=== PATIENT | male | born 1980 | race Two or more races ===

== ENCOUNTER 2018-02-04 12:25 | Inpatient (IN) | payer OTHER ==
[2018-02-04 14:03] VITALS: BMI 19.0
--- NOTE | 2018-02-04 19:09 | HP ---
Admission [facility] Chief Complaint: I'm here for detox and rehab cocaone, heroin, xanax. Allergies/Adverse Reactions: Allergies Allergy/AdvReac Type Severity Reaction Status Date / Time No Known Allergies Allergy Verified 02/04/18 17:57 History of Present Illness: 37 yom with a history of heroin use for 12 years via IV 2-3 bundles daily. Cocaine/crack daily q2-3 hours for 7 months. Xanax 6-2 mg tabs daily for approximately 2 years. Last detox at [facility] one year ago. Currently on Methadone Maintenance 120 mg PO daily at [facility] [phone]) Last Methadone 02/04; Last use of xanax 02/04 @ 4 am; Cocaine/ crack last useson 02/04 @ 4am. Alcohol/Beer intake 12 oz every 3-4 hours for about 10 years. Last drink 02/03 @ 9 pm. Denies history black outs, seizures. - Ebola screening Have you traveled outside of the country in the last 21 days: No Have you had contact with anyone from an Ebola affected area: No Have you been sick,other than usual withdrawal symptoms: No - Review of Systems Constitutional: Chills, Loss of Appetite, Night Sweats, Unintentional Wgt. Loss (Lost about 10 pounds in last 3 months.) EENT: reports: Dental Problems (Missing teeth, cracked teeth, multiple caries. Denies tooth discomfort.) Respiratory: reports: No Symptoms reported Cardiac: reports: No Symptoms Reported GI: reports: Constipated (No BM x 3 days. BM's brownish in color and usually hard.), Nausea, Poor Appetite : reports: Other (Difficulty initiaing urine flow. Denies burning, pain or blood with urination.) Musculoskeletal: reports: No Symptoms Reported, Joint Pain (Pain both knees ankles for many years. Sharp, ranges between 7-8, increases with standing or sitting. Relieved with legs extended and resting.) Integumentary: reports: Other (Has sores from injecting self.) Neuro: reports: Other (Hx stroke 7 years ago post injection of cocaine. had a (L ) sided paralysis which resolved.) Endocrine: reports: No Symptoms Reported Hematology: reports: Anemia Psychiatric: reports: Orientated x3, Depressed (Hx bipolar disorder. States hx depression. Denies current thoughts of harming self or others. Admitis to suicide attempt in 1996 after having a fight with a family member.) Other Systems: Reviewed and Negative Patient History - Patient Medical History Hx Anemia: Yes Hx Asthma: Yes (Denies recent exacerbation.) Hx Chronic Obstructive Pulmonary Disease (COPD): No Hx Cancer: No Hx Cardiac Disorders: Yes (Possible [place] secondary to IV heroin and Cocaine use 2011, Hosp. in [place] ? pt d) Hx Congestive Heart Failure: No Hx Hypertension: No Hx Hypercholesterolemia: No Hx Pacemaker: No HX Cerebrovascular Accident: Yes (ri side head and left side of body affected 7 years ago after IV cocaine ) Hx Seizures: No (Denies seizures.) Hx Dementia: No Hx Diabetes: No Hx Gastrointestinal Disorders: No Hx Liver Disease: Yes (Hep C, diagnosed 1995) Hx Genitourinary Disorders: Yes (Difficulty initiating urine flow. ) Hx Sexually Transmitted Disorders: No Hx Renal Disease (ESRD): No Hx Thyroid Disease: No Hx Human Immunodeficiency Virus (HIV): No (denies) Hx Hepatitis C: Yes Hx Depression: Yes (Does not remember meds treated with. ) Hx Suicide Attempt: Yes (hx in 1996 "cuting" his vein in arm in [place]. Denies current suicide ideation.) Hx Bipolar Disorder: Yes (Does not remember what medications he was taking.) Hx Schizophrenia: No - Patient Surgical History Past Surgical History: No Hx Neurologic Surgery: No Hx Cataract Extraction: No Hx Cardiac Surgery: No Hx Lung Surgery: No Hx Breast Surgery: No Hx Breast Biopsy: No Hx Abdominal Surgery: No Hx Appendectomy: No Hx Cholecystectomy: No Hx Genitourinary Surgery: No Hx Section: No Hx Orthopedic Surgery: No Hx Hysterectomy: No Anesthesia Reaction: No - PPD History Date: 05/10/13 - Smoking Cessation Smoking history: Current every day smoker Have you smoked in the past 12 months: Yes Aproximately how many cigarettes per day: 20 Hx Chewing Tobacco Use: No Initiated information on smoking cessation: Yes 'Breaking Loose' booklet given: 02/04/18 - Substance & Tx. History Hx Alcohol Use: Yes Hx Substance Use: Yes Substance Use Type: Alcohol, Heroin, Marijuana, Prescribed, Tranquilizers - Substances Abused Heroin Route: Injection Frequency: Daily Amount used: 10-20bags Age of first use: 14 Date of Last Use: 02/03/18 Crack Route: Smoking Frequency: Daily Amount used: $1000 Age of first use: 30 Date of Last Use: 02/03/18 Benzodiazepine (Klonopin) Route: Oral Frequency: Daily Amount used: 12-14mg Age of first use: 32 Date of Last Use: 02/03/18 Marijuana/Hashish Route: Smoking Frequency: Daily Amount used: 1-3 blunts Age of first use: 10 Date of Last Use: 02/02/18 Family Disease History - Family Disease History Family History: Denies Admission Physical Exam [facility] - Vital Signs Vital Signs: Vital Signs - 24 hr 02/04/18 13:58 Temperature 97.7 F Pulse Rate 71 Respiratory 20 Rate B/P: 108/68 - Physical General Appearance: Yes: Within Normal Limits, Appropriately Dressed, Mild Distress HEENTM: Yes: Hearing grossly Normal, Normal ENT Inspection, Normocephalic, Normal Voice, DOMENICA Respiratory: Yes: Within Normal Limits Neck: Yes: Supple, Trachea in good position, Other (Needle/track childress (L) and ( R) lateral neck) Breast: Yes: Breast Exam Deferred Cardiology: Yes: Regular Rhythm, Regular Rate Abdominal: Yes: Within Normal Limits Back: Yes: Within Normal Limits Musculoskeletal: Yes: Within Normal Limits, full range of Motion Extremities: Yes: Within Normal Limits Neurological: Yes: Within Normal Limits Integumentary: Yes: Track Childress (Track childress neck, arms and hands.) Lymphatic: Yes: Within Normal Limits - Diagnostic (1) Methadone maintenance therapy patient Current Visit: Yes Status: Acute (2) History of CVA (cerebrovascular accident) without residual deficits Current Visit: Yes Status: Acute (3) Knee joint pain Current Visit: Yes Status: Acute (4) Ankle joint pain Current Visit: Yes Status: Acute (5) Cocaine dependence Current Visit: No Status: Active (6) Sedative dependence Current Visit: No Status: Active (7) Nicotine dependence Current Visit: Yes Status: Acute S Breath Alcohol Content Breath Alcohol Content: 0 Urine Drug Screen - Results Drug Screen Negative: No Urine Drug Screen Results: THC-Marijuana, RONAN-Cocaine, OPI-Opiates, MTD- Methadone Inpatient Rehab Admission - Initial Determination Are CD services needed?: Yes Free of communicable disease: Yes Not in need of hospitalization: Yes - Rehab Admission Criteria Previous failed treatment: Yes Poor recovery environment: Yes Comorbidities: Yes Lacks judgement: Yes Patient is meeting Inpatient Rehab admission criteria:: Yes
[2018-02-04] MEDS ORDERED: LOPERAMIDE HCL 2 MG CAPSULE PO PRN (20:02)
[2018-02-04] MEDS ORDERED: guaiFENesin/D-METHORPHAN HB 10 ML UNIT-DOSE CUPS PO PRN (20:02)
[2018-02-04] MEDS ORDERED: P-EPHED 60MG/TRIPROLIDI 2.5MG TABLET PO PRN (20:02)
[2018-02-04] MEDS ORDERED: MAGNESIUM CITRATE 300 ML BOTTLE PO PRN (20:02)
[2018-02-04] MEDS ORDERED: ALBUTEROL SO4 18 GM HFA INHALER IH PRN (20:03)
[2018-02-04] MEDS: THIAMINE HCL 100 MG TABLET (FP) PO SCH (23:11)
[2018-02-05 06:14] LABS: URINE APPEARANCE CLOUDY; URINE BILIRUBIN NEGATIVE (<2.0 mg/dL); URINE COLOR AMBER; URINE GLUCOSE (UA) NEGATIVE (NEGATIVE); URINE KETONE NEGATIVE (NEGATIVE); URINE LEUK ESTERASE NEGATIVE (NEGATIVE); URINE NITRITE NEGATIVE (NEGATIVE); URINE PROTEIN NEGATIVE (NEGATIVE)
--- NOTE | 2018-02-05 06:55 | HP ---
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 Patient is on methadone 120 mg/day. Smokes cigarettes 1ppd Psychiatric History: Reports being diagnosed with Bipolar and depression 7-8 years ago. Denies history of previous psychiatric hospitalizations or suicidal attempt. However, reports that he has been receiving psychiatric outpatient treatment at [facility] and he is prescribed Risperdal, Lexapro, Ambien 20 mg po HS and Klonopin 2 mg po BID. Reports non-adherence to OPD care and medications. Told publicity writer that he continues to take Klonopin and Ambien since he buys them from the street. However he does not comply with Risperdal and Lexapro which he has plenty at home. Reports history of suicidal attempt by cutting his left forearm. At present, reports feeling depressed, anxious and sleeping poorly. Physical/Sexual Abuse/Trauma History: Denies history of emotional, physical or sexual abuse as well as DV relationship. No service Additional Comment: Reports history of [place] in [place] 1993 Vital Signs: Vital Signs - 24 hr 02/04/18 02/05/18 02/05/18 13:58 00:30 03:30 Temperature 97.7 F Pulse Rate 71 Respiratory 20 18 18 Rate Allergies/Adverse Reactions: Allergies Allergy/AdvReac Type Severity Reaction Status Date / Time No Known Allergies Allergy Verified 02/04/18 17:57 Date of last physical exam: 02/04/18 - Substance Abuse/Tx History Hx Alcohol Use: No Hx Substance Use: Yes Substance Use Type: Cocaine (Started smoking crack cocaine at age 30, consumes $ 1000 worth daily. Last smoked on 02/03/18), Heroin (Started using heroin at age 14, consumes 10-20 bags daily. Last used on 02/03/18), Marijuana (Started smoking marijuana at age 10, consumes 1-3 blunts daily. Last smoked on 02/02/18) , Tranquilizers (Started using klonopin at age 32, consumes 12-14 mg daily. Last used on 02/03/18) Hx Substance Use Treatment: Yes (One previous inpt detox @ [facility] in April 2013) Mental Status Exam - Mental Status Exam Alert and Oriented to: Time, Place, Person Cognitive Function: Fair Patient Appearance: Well Groomed Mood: Depressed, Anxious Affect: Appropriate Patient Behavior: Cooperative Speech Pattern: Clear Voice Loudness: Normal Thought Process: Intact, Goal Oriented Thought Disorder: Not Present Hallucinations: Denies Suicidal Ideation: Denies Homicidal Ideation: Denies Insight/Judgement: Fair Sleep: Poorly Appetite: Poor Muscle strength/Tone: Normal Gait/Station: Normal Psychiatric Findings - Problem List ([place] 1, 2,3) (1) Cocaine dependence Current Visit: No Status: Active (2) Sedative dependence Current Visit: No Status: Active (3) Cannabis dependence Current Visit: Yes Status: Acute (4) Opioid dependence on agonist therapy Current Visit: Yes Status: Chronic (5) Nicotine dependence Current Visit: Yes Status: Chronic (6) Bipolar II disorder Current Visit: Yes Status: Chronic (7) MDD (major depressive disorder) Current Visit: Yes Status: Ruled-out (8) Substance induced mood disorder Current Visit: Yes Status: Acute (9) Substance-induced sleep disorder Current Visit: Yes Status: Acute (10) Asthma Current Visit: Yes Status: Chronic - Initial Treatment Plan Initial Treatment Plan: Schedule Manager called [facility]([phone]) regarding patient's medications to . According to agency staff, patient last attended in Oct 2017 and was then on Celexa 20 mg po daily, Klonopin 2 mg po BID and Ambien. He was not on Risperdal. That staff told publicity writer that she will ask someone with acces to more information about diagnosis etc to contact me. In the mean time, patient will be restarted on Celexa 20 mg po daily.
[2018-02-05] MEDS: METHADONE HCL 40 MG DISPERSABLE TABLET PO SCH (08:20)
--- NOTE | 2018-02-05 09:29 | EKG ---
Test Reason : Blood Pressure : / mmHG Vent. Rate : 058 BPM Atrial Rate : 058 BPM P-R Int : 154 ms QRS Dur : 072 ms QT Int : 464 ms P-R-T Axes : 043 000 034 degrees QTc Int : 455 ms SINUS BRADYCARDIA OTHERWISE NORMAL ECG NO PREVIOUS ECGS AVAILABLE Confirmed by ZARA BURKETT, JORDAN ([id number]) on 02/05/2018 9:29:15 AM Referred By: Confirmed By:JORDAN ZUÑIGA MD
[2018-02-05 09:49] LABS: HEMATOCRIT 38.9 % (35.4-49); HEMOGLOBIN 13.1 GM/dL (11.7-16.9); MCH 28.5 pg (25.7-33.7); MCHC 33.6 g/dl (32.0-35.9); MEAN CELL VOLUME 84.9 fl (80-96); MEAN PLT VOLUME 8.7 fl (7.5-11.1); PLATELET COUNT 234 K/MM3 (134-434); RBC 4.58 M/mm3 (4.00-5.60); RDW 14.7 % (11.9-15.9); WHITE BLOOD COUNT 5.7 K/mm3 (4.0-10.0)
[2018-02-05 10:03] LABS: CHLORIDE 110 mmol/L (98-107); POTASSIUM 3.8 mmol/L (3.5-5.1); SODIUM 142 mmol/L (136-145)
[2018-02-05 10:11] LABS: ALBUMIN 3.1 g/dl (3.4-5.0); ALK PHOS 96 U/L (45-117); ANION GAP 6 (8-16); BILIRUBIN,TOTAL 0.2 mg/dL (0.2-1.0); BLOOD UREA NITROGEN 10 mg/dL (7-18); CALCIUM 8.3 mg/dL (8.5-10.1); CO2 26 mmol/L (21-32); CREATININE 0.7 mg/dL (0.7-1.3); GLUCOSE,RANDOM 120 mg/dL (74-106); SGOT/AST 14 U/L (15-37); SGPT/ALT 14 U/L (12-78); TOT PROT 6.2 g/dl (6.4-8.2)
[2018-02-05] MEDS: PRENATAL VITAMINS W/ FOLIC ACID TABLET (FP) PO SCH (10:50)
[2018-02-05] MEDS: NICOTINE POLACRILEX 2 MG GUM BUC PRN ×2 (19:20→21:21)
[2018-02-05] MEDS: hydrOXYzine PAMOATE 50 MG CAPSULE (FP) PO PRN (21:21)
[2018-02-05] MEDS: MELATONIN 5 MG TABLETS PO PRN (21:21)
[2018-02-05] MEDS: THIAMINE HCL 100 MG TABLET (FP) PO SCH (21:21)
[2018-02-06] MEDS: METHADONE HCL 40 MG DISPERSABLE TABLET PO SCH (06:21)
[2018-02-06] MEDS: PRENATAL VITAMINS W/ FOLIC ACID TABLET (FP) PO SCH (10:24)
[2018-02-06] MEDS: NICOTINE POLACRILEX 2 MG GUM BUC PRN ×2 (18:04→21:37)
[2018-02-06] MEDS: THIAMINE HCL 100 MG TABLET (FP) PO SCH (21:37)
[2018-02-07] MEDS: METHADONE HCL 40 MG DISPERSABLE TABLET PO SCH (06:28)
[2018-02-07] MEDS: NICOTINE POLACRILEX 2 MG GUM BUC PRN ×3 (06:30→21:23)
[2018-02-07] MEDS: CITALOPRAM HYDROBROMIDE 20 MG TABLET (FP) PO SCH (10:02)
[2018-02-07] MEDS: PRENATAL VITAMINS W/ FOLIC ACID TABLET (FP) PO SCH (10:02)
[2018-02-07] MEDS: THIAMINE HCL 100 MG TABLET (FP) PO SCH (21:22)
[2018-02-08] MEDS: METHADONE HCL 40 MG DISPERSABLE TABLET PO SCH (06:08)
[2018-02-08] MEDS: ACETAMINOPHEN 325 MG TABLET (FP) PO PRN ×2 (06:09→18:14)
[2018-02-08] MEDS: NICOTINE POLACRILEX 2 MG GUM BUC PRN (08:22)
[2018-02-08] MEDS: PRENATAL VITAMINS W/ FOLIC ACID TABLET (FP) PO SCH (09:29)
[2018-02-08] MEDS: CITALOPRAM HYDROBROMIDE 20 MG TABLET (FP) PO SCH (09:29)
[2018-02-08] MEDS: NICOTINE 21 MG/24 HOURS TOPICAL PATCH TD SCH (12:15)
[2018-02-08] MEDS: NICOTINE POLACRILEX 4 MG GUM BUC PRN ×3 (12:15→21:29)
[2018-02-08] MEDS: CYCLOBENZAPRINE HCL 10 MG TABLET (FP) PO PRN (21:28)
[2018-02-08] MEDS: THIAMINE HCL 100 MG TABLET (FP) PO SCH (21:28)
[2018-02-09] MEDS: METHADONE HCL 40 MG DISPERSABLE TABLET PO SCH (06:20)
[2018-02-09] MEDS: ACETAMINOPHEN 325 MG TABLET (FP) PO PRN ×2 (06:20→19:04)
[2018-02-09] MEDS: PRENATAL VITAMINS W/ FOLIC ACID TABLET (FP) PO SCH (10:13)
[2018-02-09] MEDS: CITALOPRAM HYDROBROMIDE 20 MG TABLET (FP) PO SCH (10:13)
[2018-02-09] MEDS: NICOTINE 21 MG/24 HOURS TOPICAL PATCH TD SCH (10:13)
[2018-02-09] MEDS: CYCLOBENZAPRINE HCL 10 MG TABLET (FP) PO PRN ×2 (10:15→22:04)
[2018-02-09] MEDS: THIAMINE HCL 100 MG TABLET (FP) PO SCH (22:03)
[2018-02-09] MEDS: MELATONIN 5 MG TABLETS PO PRN (22:04)
[2018-02-09] MEDS: NICOTINE POLACRILEX 4 MG GUM BUC PRN (22:04)
[2018-02-09] MEDS: hydrOXYzine PAMOATE 50 MG CAPSULE (FP) PO PRN (22:04)
[2018-02-10] MEDS: METHADONE HCL 40 MG DISPERSABLE TABLET PO SCH (06:06)
[2018-02-10] MEDS: NICOTINE 21 MG/24 HOURS TOPICAL PATCH TD SCH (09:59)
[2018-02-10] MEDS: CITALOPRAM HYDROBROMIDE 20 MG TABLET (FP) PO SCH (09:59)
[2018-02-10] MEDS: PRENATAL VITAMINS W/ FOLIC ACID TABLET (FP) PO SCH (09:59)
[2018-02-10] MEDS: CYCLOBENZAPRINE HCL 10 MG TABLET (FP) PO PRN (10:00)
[2018-02-10] MEDS: NICOTINE POLACRILEX 4 MG GUM BUC PRN ×2 (10:01→21:10)
[2018-02-10] MEDS: THIAMINE HCL 100 MG TABLET (FP) PO SCH (21:09)
[2018-02-10] MEDS: MELATONIN 5 MG TABLETS PO PRN (21:09)
[2018-02-11] MEDS: METHADONE HCL 40 MG DISPERSABLE TABLET PO SCH (06:31)
[2018-02-11] MEDS: CYCLOBENZAPRINE HCL 10 MG TABLET (FP) PO PRN ×2 (06:32→21:06)
[2018-02-11] MEDS: ACETAMINOPHEN 325 MG TABLET (FP) PO PRN (06:32)
[2018-02-11] MEDS: MAG HYDROX/AL HYDROX/SIMETH 30 ML UNIT-DOSE CUP PO PRN (06:34)
[2018-02-11] MEDS: PRENATAL VITAMINS W/ FOLIC ACID TABLET (FP) PO SCH (09:34)
[2018-02-11] MEDS: CITALOPRAM HYDROBROMIDE 20 MG TABLET (FP) PO SCH (09:34)
[2018-02-11] MEDS: NICOTINE 21 MG/24 HOURS TOPICAL PATCH TD SCH (09:34)
[2018-02-11] MEDS: NICOTINE POLACRILEX 4 MG GUM BUC PRN ×2 (09:35→21:06)
[2018-02-11] MEDS: MELATONIN 5 MG TABLETS PO PRN (21:06)
[2018-02-11] MEDS: hydrOXYzine PAMOATE 50 MG CAPSULE (FP) PO PRN (21:06)
[2018-02-11] MEDS: THIAMINE HCL 100 MG TABLET (FP) PO SCH (21:06)
[2018-02-12] MEDS: METHADONE HCL 40 MG DISPERSABLE TABLET PO SCH (06:20)
[2018-02-12] MEDS: NICOTINE 21 MG/24 HOURS TOPICAL PATCH TD SCH (09:33)
[2018-02-12] MEDS: CITALOPRAM HYDROBROMIDE 20 MG TABLET (FP) PO SCH (09:33)
[2018-02-12] MEDS: PRENATAL VITAMINS W/ FOLIC ACID TABLET (FP) PO SCH (09:33)
[2018-02-12] MEDS: NICOTINE POLACRILEX 4 MG GUM BUC PRN ×2 (09:35→21:09)
[2018-02-12] MEDS: THIAMINE HCL 100 MG TABLET (FP) PO SCH (21:08)
[2018-02-12] MEDS: CYCLOBENZAPRINE HCL 10 MG TABLET (FP) PO PRN (21:08)
[2018-02-12] MEDS: MELATONIN 5 MG TABLETS PO PRN (21:08)
[2018-02-13] MEDS: METHADONE HCL 40 MG DISPERSABLE TABLET PO SCH (06:04)
[2018-02-13] MEDS: CITALOPRAM HYDROBROMIDE 20 MG TABLET (FP) PO SCH (09:30)
[2018-02-13] MEDS: NICOTINE 21 MG/24 HOURS TOPICAL PATCH TD SCH (09:30)
[2018-02-13] MEDS: PRENATAL VITAMINS W/ FOLIC ACID TABLET (FP) PO SCH (09:30)
[2018-02-13] MEDS: NICOTINE POLACRILEX 4 MG GUM BUC PRN ×2 (09:32→19:44)
[2018-02-13] MEDS: IBUPROFEN 400 MG TABLET (FP) PO PRN (19:42)
[2018-02-13] MEDS: THIAMINE HCL 100 MG TABLET (FP) PO SCH (21:03)
[2018-02-13] MEDS: MELATONIN 5 MG TABLETS PO PRN (21:03)
[2018-02-13] MEDS ORDERED: PT OWN MED DRAWER 7, Y5N ONE (22:02)
[2018-02-14] MEDS: METHADONE HCL 40 MG DISPERSABLE TABLET PO SCH (06:03)
[2018-02-14] MEDS: PRENATAL VITAMINS W/ FOLIC ACID TABLET (FP) PO SCH (09:36)
[2018-02-14] MEDS: CITALOPRAM HYDROBROMIDE 20 MG TABLET (FP) PO SCH (09:36)
[2018-02-14] MEDS: NICOTINE 21 MG/24 HOURS TOPICAL PATCH TD SCH (09:36)
[2018-02-14] MEDS: NICOTINE POLACRILEX 4 MG GUM BUC PRN ×3 (09:37→21:33)
[2018-02-14] MEDS: hydrOXYzine PAMOATE 50 MG CAPSULE (FP) PO PRN ×2 (10:51→21:32)
[2018-02-14] MEDS: THIAMINE HCL 100 MG TABLET (FP) PO SCH (21:32)
[2018-02-14] MEDS: MELATONIN 5 MG TABLETS PO PRN (21:32)
[2018-02-15] MEDS: METHADONE HCL 40 MG DISPERSABLE TABLET PO SCH (06:07)
[2018-02-15] MEDS: NICOTINE 21 MG/24 HOURS TOPICAL PATCH TD SCH (10:06)
[2018-02-15] MEDS: CITALOPRAM HYDROBROMIDE 20 MG TABLET (FP) PO SCH (10:06)
[2018-02-15] MEDS: PRENATAL VITAMINS W/ FOLIC ACID TABLET (FP) PO SCH (10:06)
[2018-02-15] MEDS: NICOTINE POLACRILEX 4 MG GUM BUC PRN ×2 (18:11→21:35)
[2018-02-15] MEDS: hydrOXYzine PAMOATE 50 MG CAPSULE (FP) PO PRN (18:11)
[2018-02-15] MEDS: THIAMINE HCL 100 MG TABLET (FP) PO SCH (21:35)
[2018-02-15] MEDS: MELATONIN 5 MG TABLETS PO PRN (21:35)
[2018-02-16] MEDS: METHADONE HCL 40 MG DISPERSABLE TABLET PO SCH (06:20)
[2018-02-16] MEDS: PRENATAL VITAMINS W/ FOLIC ACID TABLET (FP) PO SCH (10:04)
[2018-02-16] MEDS: CITALOPRAM HYDROBROMIDE 20 MG TABLET (FP) PO SCH (10:04)
[2018-02-16] MEDS: NICOTINE 21 MG/24 HOURS TOPICAL PATCH TD SCH (10:04)
[2018-02-16] MEDS: NICOTINE POLACRILEX 4 MG GUM BUC PRN ×3 (10:07→21:35)
[2018-02-16] MEDS: THIAMINE HCL 100 MG TABLET (FP) PO SCH (21:34)
[2018-02-16] MEDS: MELATONIN 5 MG TABLETS PO PRN (21:34)
[2018-02-16] MEDS: MAG HYDROX/AL HYDROX/SIMETH 30 ML UNIT-DOSE CUP PO PRN (21:35)
[2018-02-16] MEDS: ACETAMINOPHEN 325 MG TABLET (FP) PO PRN (23:47)
[2018-02-17] MEDS: METHADONE HCL 40 MG DISPERSABLE TABLET PO SCH (06:28)
[2018-02-17] MEDS: PRENATAL VITAMINS W/ FOLIC ACID TABLET (FP) PO SCH (10:01)
[2018-02-17] MEDS: CITALOPRAM HYDROBROMIDE 20 MG TABLET (FP) PO SCH (10:01)
[2018-02-17] MEDS: NICOTINE 21 MG/24 HOURS TOPICAL PATCH TD SCH (10:01)
[2018-02-17] MEDS: NICOTINE POLACRILEX 4 MG GUM BUC PRN ×2 (10:02→21:32)
[2018-02-17] MEDS: MAG HYDROX/AL HYDROX/SIMETH 30 ML UNIT-DOSE CUP PO PRN (19:17)
[2018-02-17] MEDS: THIAMINE HCL 100 MG TABLET (FP) PO SCH (21:30)
[2018-02-17] MEDS: MELATONIN 5 MG TABLETS PO PRN (21:30)
[2018-02-17] MEDS: IBUPROFEN 400 MG TABLET (FP) PO PRN (21:31)
[2018-02-18] MEDS: METHADONE HCL 40 MG DISPERSABLE TABLET PO SCH (05:51)
[2018-02-18] MEDS: NICOTINE 21 MG/24 HOURS TOPICAL PATCH TD SCH (09:59)
[2018-02-18] MEDS: PRENATAL VITAMINS W/ FOLIC ACID TABLET (FP) PO SCH (09:59)
[2018-02-18] MEDS: CITALOPRAM HYDROBROMIDE 20 MG TABLET (FP) PO SCH (10:00)
[2018-02-18] MEDS: MAGNESIUM HYDROX 2400MG/30ML ORAL SUSPENSION 30 ML CUP PO PRN (11:10)
[2018-02-18] MEDS: THIAMINE HCL 100 MG TABLET (FP) PO SCH (21:44)
[2018-02-18] MEDS: MELATONIN 5 MG TABLETS PO PRN (21:45)
[2018-02-18] MEDS: NICOTINE POLACRILEX 4 MG GUM BUC PRN (21:45)
[2018-02-19] MEDS: METHADONE HCL 40 MG DISPERSABLE TABLET PO SCH (06:43)
[2018-02-19] MEDS: MAGNESIUM HYDROX 2400MG/30ML ORAL SUSPENSION 30 ML CUP PO PRN (10:09)
[2018-02-19] MEDS: NICOTINE 21 MG/24 HOURS TOPICAL PATCH TD SCH (10:09)
[2018-02-19] MEDS: PRENATAL VITAMINS W/ FOLIC ACID TABLET (FP) PO SCH (10:09)
[2018-02-19] MEDS: CITALOPRAM HYDROBROMIDE 20 MG TABLET (FP) PO SCH (10:09)
[2018-02-19] MEDS: NICOTINE POLACRILEX 4 MG GUM BUC PRN ×2 (10:11→21:50)
[2018-02-19] MEDS: THIAMINE HCL 100 MG TABLET (FP) PO SCH (21:50)
[2018-02-19] MEDS: MELATONIN 5 MG TABLETS PO PRN (21:50)
[2018-02-20] MEDS: METHADONE HCL 40 MG DISPERSABLE TABLET PO SCH (06:43)
[2018-02-20] MEDS: PRENATAL VITAMINS W/ FOLIC ACID TABLET (FP) PO SCH (10:33)
[2018-02-20] MEDS: CITALOPRAM HYDROBROMIDE 20 MG TABLET (FP) PO SCH (10:33)
[2018-02-20] MEDS: NICOTINE 21 MG/24 HOURS TOPICAL PATCH TD SCH (10:33)
[2018-02-20] MEDS: NICOTINE POLACRILEX 4 MG GUM BUC PRN ×2 (10:35→21:53)
[2018-02-20] MEDS: MELATONIN 5 MG TABLETS PO PRN (21:52)
[2018-02-20] MEDS: THIAMINE HCL 100 MG TABLET (FP) PO SCH (21:52)
[2018-02-21] MEDS: METHADONE HCL 40 MG DISPERSABLE TABLET PO SCH (06:35)
[2018-02-21] MEDS: NICOTINE POLACRILEX 4 MG GUM BUC PRN ×2 (10:33→21:57)
[2018-02-21] MEDS: PRENATAL VITAMINS W/ FOLIC ACID TABLET (FP) PO SCH (10:33)
[2018-02-21] MEDS: CITALOPRAM HYDROBROMIDE 20 MG TABLET (FP) PO SCH (10:33)
[2018-02-21] MEDS: NICOTINE 21 MG/24 HOURS TOPICAL PATCH TD SCH (10:33)
[2018-02-21] MEDS: hydrOXYzine PAMOATE 50 MG CAPSULE (FP) PO PRN (21:56)
[2018-02-21] MEDS: MELATONIN 5 MG TABLETS PO PRN (21:56)
[2018-02-21] MEDS: MAG HYDROX/AL HYDROX/SIMETH 30 ML UNIT-DOSE CUP PO PRN (21:56)
[2018-02-21] MEDS: THIAMINE HCL 100 MG TABLET (FP) PO SCH (21:56)
[2018-02-22] MEDS: METHADONE HCL 40 MG DISPERSABLE TABLET PO SCH (06:28)
[2018-02-22] MEDS: CITALOPRAM HYDROBROMIDE 20 MG TABLET (FP) PO SCH (10:27)
[2018-02-22] MEDS: PRENATAL VITAMINS W/ FOLIC ACID TABLET (FP) PO SCH (10:27)
[2018-02-22] MEDS: NICOTINE 21 MG/24 HOURS TOPICAL PATCH TD SCH (10:27)
[2018-02-22] MEDS: NICOTINE POLACRILEX 4 MG GUM BUC PRN ×3 (10:28→22:08)
[2018-02-22] MEDS: THIAMINE HCL 100 MG TABLET (FP) PO SCH (22:07)
[2018-02-22] MEDS: MELATONIN 5 MG TABLETS PO PRN (22:07)
[2018-02-23] MEDS: METHADONE HCL 40 MG DISPERSABLE TABLET PO SCH (06:36)
[2018-02-23] MEDS: NICOTINE 21 MG/24 HOURS TOPICAL PATCH TD SCH (10:36)
[2018-02-23] MEDS: CITALOPRAM HYDROBROMIDE 20 MG TABLET (FP) PO SCH (10:37)
[2018-02-23] MEDS: PRENATAL VITAMINS W/ FOLIC ACID TABLET (FP) PO SCH (10:37)
[2018-02-23] MEDS: NICOTINE POLACRILEX 4 MG GUM BUC PRN ×3 (10:38→22:00)
[2018-02-23] MEDS: THIAMINE HCL 100 MG TABLET (FP) PO SCH (21:58)
[2018-02-23] MEDS: MELATONIN 5 MG TABLETS PO PRN (22:00)
[2018-02-24] MEDS: METHADONE HCL 40 MG DISPERSABLE TABLET PO SCH (06:27)
[2018-02-24] MEDS: CITALOPRAM HYDROBROMIDE 20 MG TABLET (FP) PO SCH (10:11)
[2018-02-24] MEDS: PRENATAL VITAMINS W/ FOLIC ACID TABLET (FP) PO SCH (10:11)
[2018-02-24] MEDS: NICOTINE 21 MG/24 HOURS TOPICAL PATCH TD SCH (10:11)
[2018-02-24] MEDS: MAGNESIUM HYDROX 2400MG/30ML ORAL SUSPENSION 30 ML CUP PO PRN (10:13)
[2018-02-24] MEDS: NICOTINE POLACRILEX 4 MG GUM BUC PRN ×2 (10:14→21:16)
[2018-02-24] MEDS: THIAMINE HCL 100 MG TABLET (FP) PO SCH (21:16)
[2018-02-24] MEDS: MELATONIN 5 MG TABLETS PO PRN (21:16)
[2018-02-24] MEDS: hydrOXYzine PAMOATE 50 MG CAPSULE (FP) PO PRN (21:16)
[2018-02-25] MEDS: METHADONE HCL 40 MG DISPERSABLE TABLET PO SCH (06:17)
[2018-02-25] MEDS: CITALOPRAM HYDROBROMIDE 20 MG TABLET (FP) PO SCH (10:14)
[2018-02-25] MEDS: NICOTINE 21 MG/24 HOURS TOPICAL PATCH TD SCH (10:14)
[2018-02-25] MEDS: PRENATAL VITAMINS W/ FOLIC ACID TABLET (FP) PO SCH (10:14)
[2018-02-25] MEDS: NICOTINE POLACRILEX 4 MG GUM BUC PRN ×2 (10:15→21:50)
[2018-02-25] MEDS: MELATONIN 5 MG TABLETS PO PRN (21:50)
[2018-02-25] MEDS: THIAMINE HCL 100 MG TABLET (FP) PO SCH (21:50)
[2018-02-26] MEDS: METHADONE HCL 40 MG DISPERSABLE TABLET PO SCH (06:37)
--- NOTE | 2018-02-26 09:27 | PN ---
Psychiatric Progress Note Vital Signs: Vital Signs Period Temp Pulse Resp BP Sys/Romero Pulse Ox Last 24 Hr 97.8 F 68 18-18 103/76 Date of Session: 02/26/18 Chief Complaint:: Discharge Note HPI: Patient Cocaine, Sedative and Cannabis Dependence comorbid with Opioid Dependence on Agonist Therapy, Nicotine Dependence, Bipolar II Disorder, Substance-Induced Mood Disorder and Substance-Induced Sleep Disorder ROS: Asthma Current Medications: Active Medications Generic Name Dose Route Start Last Admin Trade Name Freq PRN Reason Stop Dose Admin Acetaminophen 650 mg 02/04/18 20:02 02/16/18 23:47 Tylenol - PO 650 mg Q4H PRN Administration FEVER Al Hydroxide/Mg Hydroxide 30 ml 02/04/18 20:02 02/21/18 21:56 Mylanta Oral Suspension - PO 30 ml Q6H PRN Administration DYSPEPSIA Albuterol Sulfate 2 puff 02/04/18 20:03 Ventolin Hfa Inhaler - IH Q4H PRN ASTHMA Citalopram Hydrobromide 20 mg 02/07/18 10:00 02/25/18 10:14 Celexa - PO 20 mg DAILY THEODORA Administration Eucalyptus/Menthol/Phenol/Sorbitol 1 each 02/04/18 20:02 Cepastat Lozenge - MM Q4H PRN SORE THROAT Guaifenesin 10 ml 02/04/18 20:02 Robitussin Dm - PO Q6H PRN COUGH Hydroxyzine Pamoate 50 mg 02/04/18 20:06 02/24/18 21:16 Vistaril - PO 50 mg Q6H PRN Administration FOR ITCHING Ibuprofen 400 mg 02/04/18 20:02 02/17/18 21:31 Motrin - PO 400 mg Q6H PRN Administration Pain level 4-6 Loperamide HCl 4 mg 02/04/18 20:02 Imodium - PO Q6H PRN DIARRHEA Magnesium Citrate 300 ml 02/04/18 20:02 02/20/18 10:33 Citroma - PO 300 ml Q48H PRN Administration CONSTIPATION Magnesium Hydroxide 30 ml 02/04/18 20:02 02/24/18 10:13 Milk Of Magnesia - PO 30 ml DAILY PRN Administration CONSTIPATION Melatonin 5 mg 02/04/18 22:00 02/25/18 21:50 Melatonin PO 5 mg HS PRN Administration INSOMNIA Methadone HCl 120 mg 05/09/18 06:00 02/26/18 06:37 Dolophine - PO 120 mg DAILY@0600 THEODORA Administration Nicotine 21 mg 02/08/18 11:30 02/25/18 10:14 Nicoderm Patch - TD 21 mg DAILY THEODORA Administration Nicotine Polacrilex 4 mg 02/08/18 11:17 02/25/18 21:50 Nicorette Gum - BUC 4 mg Q2H PRN Administration NICOTINE REPLACEMENT RX Multivit/Folic Acid/Iron 1 tab 02/05/18 10:00 02/25/18 10:14 Vitamins (Sjr) - PO 1 tab DAILY THEODORA Administration Pseudoephedrine/Triprolidine 1 combo 02/04/18 20:02 Actifed - PO TID PRN NASAL CONGESTION Thiamine HCl 100 mg 02/04/18 22:00 02/25/18 21:50 Vitamin B1 - PO 100 mg HS THEODORA Administration Current Side Effect: No Lab tests ordered: Yes Lab tests reviewed: Yes Provider note:: Patient will complete this program on 02/27/18. He has met his treatment goals and will continue to address his issues in outpatient treatment at [facility]. He responded to Celexa 20 mg po daily. Script for 30 days supply of medication will be electronically transmitted to [facility] at [address] [place] [address]. He is stable for discharge on 08/07 Total face to face time:: 35 Mental Status Exam - Mental Status Exam Alert and Oriented to: Time, Place, Person Cognitive Function: Fair Patient Appearance: Well Groomed Mood: Hopeful, Euthymic Affect: Appropriate Patient Behavior: Cooperative Speech Pattern: Clear Voice Loudness: Normal Thought Process: Intact, Goal Oriented Thought Disorder: Not Present Hallucinations: Denies Suicidal Ideation: Denies Insight/Judgement: Fair Sleep: Fair Appetite: Good Muscle strength/Tone: Normal Gait/Station: Normal Psychiatric Treatment Plan - Problem List (1) Cocaine dependence Current Visit: No (2) Sedative dependence Current Visit: No (3) Cannabis dependence Current Visit: Yes Initial treatment plan: Patient will be discharged tomorrow and referred to [facility] (4) Opioid dependence on agonist therapy Current Visit: Yes (5) Nicotine dependence Current Visit: Yes (6) Bipolar II disorder Current Visit: Yes (7) MDD (major depressive disorder) Current Visit: Yes (8) Substance induced mood disorder Current Visit: Yes (9) Substance-induced sleep disorder Current Visit: Yes (10) Asthma Current Visit: Yes
[2018-02-26] MEDS: NICOTINE 21 MG/24 HOURS TOPICAL PATCH TD SCH (10:53)
[2018-02-26] MEDS: PRENATAL VITAMINS W/ FOLIC ACID TABLET (FP) PO SCH (10:53)
[2018-02-26] MEDS: CITALOPRAM HYDROBROMIDE 20 MG TABLET (FP) PO SCH (10:53)
[2018-02-26] MEDS: NICOTINE POLACRILEX 4 MG GUM BUC PRN ×2 (10:54→22:00)
[2018-02-26] MEDS: THIAMINE HCL 100 MG TABLET (FP) PO SCH (21:58)
[2018-02-26] MEDS: MELATONIN 5 MG TABLETS PO PRN (21:59)
[2018-02-27] MEDS: METHADONE HCL 40 MG DISPERSABLE TABLET PO SCH (06:22)
[2018-02-27] MEDS: NICOTINE 21 MG/24 HOURS TOPICAL PATCH TD SCH (10:06)
[2018-02-27] MEDS: CITALOPRAM HYDROBROMIDE 20 MG TABLET (FP) PO SCH (10:06)
[2018-02-27] MEDS: PRENATAL VITAMINS W/ FOLIC ACID TABLET (FP) PO SCH (10:06)
[2018-02-27] MEDS: NICOTINE POLACRILEX 4 MG GUM BUC PRN (10:07)
[2018-02-27] MEDS: THIAMINE HCL 100 MG TABLET (FP) PO SCH (21:56)
[2018-02-28] MEDS: MELATONIN 5 MG TABLETS PO PRN ×2 (00:18→21:49)
[2018-02-28] MEDS: METHADONE HCL 40 MG DISPERSABLE TABLET PO SCH (06:28)
[2018-02-28] MEDS: PRENATAL VITAMINS W/ FOLIC ACID TABLET (FP) PO SCH (10:16)
[2018-02-28] MEDS: NICOTINE 21 MG/24 HOURS TOPICAL PATCH TD SCH (10:16)
[2018-02-28] MEDS: CITALOPRAM HYDROBROMIDE 20 MG TABLET (FP) PO SCH (10:16)
[2018-02-28] MEDS: NICOTINE POLACRILEX 4 MG GUM BUC PRN ×2 (10:17→21:51)
--- NOTE | 2018-02-28 16:11 | PN ---
[facility] Progress Note Note: Patient presents with right leg pain. Has history of right leg tumor. Denies any recent injury to legs. Laboratory Tests 02/04/18 02/05/18 02/05/18 20:15 07:00 07:00 WBC 5.7 D RBC 4.58 Hgb 13.1 Hct 38.9 MCV 84.9 MCH 28.5 MCHC 33.6 RDW 14.7 Plt Count 234 MPV 8.7 Sodium 142 Potassium 3.8 Chloride 110 H Carbon Dioxide 26 Anion Gap 6 L BUN 10 D Creatinine 0.7 Creat Clearance w eGFR > 60 Random Glucose 120 H D Calcium 8.3 L Total Bilirubin 0.2 D AST 14 L ALT 14 D Alkaline Phosphatase 96 Total Protein 6.2 L Albumin 3.1 L Urine Color Zuri Urine Appearance Cloudy Urine pH 5.0 Ur Specific [place] 1.028 Urine Protein Negative Urine Glucose (UA) Negative Urine Ketones Negative Urine Blood Negative Urine Nitrite Negative Urine Bilirubin Negative Urine Urobilinogen 2.0 Ur Leukocyte Esterase Negative RPR Titer 02/05/18 07:00 WBC RBC Hgb Hct MCV MCH MCHC RDW Plt Count MPV Sodium Potassium Chloride Carbon Dioxide Anion Gap BUN Creatinine Creat Clearance w eGFR Random Glucose Calcium Total Bilirubin AST ALT Alkaline Phosphatase Total Protein Albumin Urine Color Urine Appearance Urine pH Ur Specific [place] Urine Protein Urine Glucose (UA) Urine Ketones Urine Blood Urine Nitrite Urine Bilirubin Urine Urobilinogen Ur Leukocyte Esterase RPR Titer Nonreactive Vital Signs Period Temp Pulse Resp BP Sys/Romero Pulse Ox Last 24 Hr 97.8 F 66 18-18 100/65 Obj: General: alert and oriented x 3. In no acute distress. Skin: Warm and dry Ext: no edema. Mild tenderness to Right knee and beltran area. No redness noted. A/P: Rt leg discomfort Continue PRN Tylenol Add Lidocaine 5% patch daily continue to monitor clinically
[2018-02-28] MEDS: THIAMINE HCL 100 MG TABLET (FP) PO SCH (21:48)
[2018-02-28] MEDS: LIDOCAINE PATCH REMOVAL MC SCH (21:49)
[2018-02-28] MEDS: MENTHOL/PHENOL 1 EACH UD MM PRN (21:49)
[2018-03-01] MEDS: METHADONE HCL 40 MG DISPERSABLE TABLET PO SCH (06:22)
[2018-03-01] MEDS: NICOTINE 21 MG/24 HOURS TOPICAL PATCH TD SCH (10:38)
[2018-03-01] MEDS: PRENATAL VITAMINS W/ FOLIC ACID TABLET (FP) PO SCH (10:38)
[2018-03-01] MEDS: CITALOPRAM HYDROBROMIDE 20 MG TABLET (FP) PO SCH (10:38)
[2018-03-01] MEDS: LIDOCAINE 5% TOPICAL PATCH TP SCH (10:38)
[2018-03-01] MEDS: NICOTINE POLACRILEX 4 MG GUM BUC PRN ×2 (10:40→21:24)
[2018-03-01] MEDS: MELATONIN 5 MG TABLETS PO PRN (21:23)
[2018-03-01] MEDS: LIDOCAINE PATCH REMOVAL MC SCH (21:23)
[2018-03-01] MEDS: THIAMINE HCL 100 MG TABLET (FP) PO SCH (21:23)
[2018-03-02] MEDS: METHADONE HCL 40 MG DISPERSABLE TABLET PO SCH (06:44)
[2018-03-02] MEDS: MENTHOL/PHENOL 1 EACH UD MM PRN ×3 (06:45→14:45)
[2018-03-02] MEDS: LIDOCAINE 5% TOPICAL PATCH TP SCH (10:20)
[2018-03-02] MEDS: PRENATAL VITAMINS W/ FOLIC ACID TABLET (FP) PO SCH (10:20)
[2018-03-02] MEDS: CITALOPRAM HYDROBROMIDE 20 MG TABLET (FP) PO SCH (10:20)
[2018-03-02] MEDS: NICOTINE 21 MG/24 HOURS TOPICAL PATCH TD SCH (10:20)
[2018-03-02] MEDS: NICOTINE POLACRILEX 4 MG GUM BUC PRN ×3 (10:21→21:54)
[2018-03-02] MEDS: MELATONIN 5 MG TABLETS PO PRN (21:53)
[2018-03-02] MEDS: THIAMINE HCL 100 MG TABLET (FP) PO SCH (21:53)
[2018-03-02] MEDS: LIDOCAINE PATCH REMOVAL MC SCH (21:54)
[2018-03-03] MEDS: METHADONE HCL 40 MG DISPERSABLE TABLET PO SCH (06:45)
[2018-03-03] MEDS: NICOTINE 21 MG/24 HOURS TOPICAL PATCH TD SCH (10:08)
[2018-03-03] MEDS: PRENATAL VITAMINS W/ FOLIC ACID TABLET (FP) PO SCH (10:08)
[2018-03-03] MEDS: CITALOPRAM HYDROBROMIDE 20 MG TABLET (FP) PO SCH (10:08)
[2018-03-03] MEDS: LIDOCAINE 5% TOPICAL PATCH TP SCH (10:09)
[2018-03-03] MEDS: NICOTINE POLACRILEX 4 MG GUM BUC PRN ×2 (10:10→22:03)
[2018-03-03] MEDS: MENTHOL/PHENOL 1 EACH UD MM PRN (10:11)
--- NOTE | 2018-03-03 12:14 | PN ---
Psychiatric Progress Note Vital Signs: Vital Signs Period Temp Pulse Resp BP Sys/Romero Pulse Ox Last 24 Hr 95.9 F 65 18-18 116/71 Date of Session: 03/03/18 Chief Complaint:: Discharge Note HPI: Patient Cocaine, Sedative and Cannabis Dependence comorbid with Opioid Dependence on Agonist Therapy, Nicotine Dependence, Bipolar II Disorder, Substance-Induced Mood Disorder and Substance-Induced Sleep Disorder ROS: Asthma Current Medications: Active Medications Generic Name Dose Route Start Last Admin Trade Name Freq PRN Reason Stop Dose Admin Acetaminophen 650 mg 02/04/18 20:02 02/16/18 23:47 Tylenol - PO 650 mg Q4H PRN Administration FEVER Al Hydroxide/Mg Hydroxide 30 ml 02/04/18 20:02 02/21/18 21:56 Mylanta Oral Suspension - PO 30 ml Q6H PRN Administration DYSPEPSIA Albuterol Sulfate 2 puff 02/04/18 20:03 Ventolin Hfa Inhaler - IH Q4H PRN ASTHMA Citalopram Hydrobromide 20 mg 02/07/18 10:00 03/03/18 10:08 Celexa - PO 20 mg DAILY THEODORA Administration Eucalyptus/Menthol/Phenol/Sorbitol 1 each 02/04/18 20:02 03/03/18 10:11 Cepastat Lozenge - MM 1 each Q4H PRN Administration SORE THROAT Guaifenesin 10 ml 02/04/18 20:02 Robitussin Dm - PO Q6H PRN COUGH Hydroxyzine Pamoate 50 mg 02/04/18 20:06 02/24/18 21:16 Vistaril - PO 50 mg Q6H PRN Administration FOR ITCHING Ibuprofen 400 mg 02/04/18 20:02 02/17/18 21:31 Motrin - PO 400 mg Q6H PRN Administration Pain level 4-6 Lidocaine 1 patch 03/01/18 10:00 03/03/18 10:09 Lidoderm Patch - TP 1 patch DAILY THEODORA Administration Loperamide HCl 4 mg 02/04/18 20:02 Imodium - PO Q6H PRN DIARRHEA Magnesium Citrate 300 ml 02/04/18 20:02 02/20/18 10:33 Citroma - PO 300 ml Q48H PRN Administration CONSTIPATION Magnesium Hydroxide 30 ml 02/04/18 20:02 02/24/18 10:13 Milk Of Magnesia - PO 30 ml DAILY PRN Administration CONSTIPATION Melatonin 5 mg 02/04/18 22:00 03/02/18 21:53 Melatonin PO 5 mg HS PRN Administration INSOMNIA Methadone HCl 120 mg 02/26/18 06:00 03/03/18 06:45 Dolophine - PO 120 mg DAILY@0600 THEODORA Administration Miscellaneous 1 each 02/28/18 22:00 03/02/18 21:54 Lidoderm Patch Removal MC Not Given DAILY@2200 THEODORA Nicotine 21 mg 02/08/18 11:30 03/03/18 10:08 Nicoderm Patch - TD 21 mg DAILY THEODORA Administration Nicotine Polacrilex 4 mg 02/08/18 11:17 03/03/18 10:10 Nicorette Gum - BUC 4 mg Q2H PRN Administration NICOTINE REPLACEMENT RX Multivit/Folic Acid/Iron 1 tab 02/05/18 10:00 03/03/18 10:08 Vitamins (Sjr) - PO 1 tab DAILY THEODORA Administration Pseudoephedrine/Triprolidine 1 combo 02/04/18 20:02 Actifed - PO TID PRN NASAL CONGESTION Thiamine HCl 100 mg 02/04/18 22:00 03/02/18 21:53 Vitamin B1 - PO 100 mg HS THEODORA Administration Current Side Effect: No Lab tests ordered: Yes Lab tests reviewed: Yes Provider note:: Patient will complete this program on 03/04/18. He has met his treatment goals and will continue to address his issues in outpatient treatment at [facility]. Told food writer that from his participation in this program, he has learned about his triggers and how best to avoid them. He responded to Celexa 20 mg po daily. Script for 30 days supply of medication will be electronically transmitted to [facility] at [address] [place] [address]. He is stable for discharge on 03/04/18 Mental Status Exam - Mental Status Exam Alert and Oriented to: Time, Place, Person Cognitive Function: Fair Patient Appearance: Well Groomed Mood: Hopeful, Euthymic Affect: Appropriate Patient Behavior: Cooperative Speech Pattern: Clear Voice Loudness: Normal Thought Process: Intact, Goal Oriented Thought Disorder: Not Present Hallucinations: Denies Suicidal Ideation: Denies Homicidal Ideation: Denies Insight/Judgement: Fair Sleep: Fair Appetite: Good Muscle strength/Tone: Normal Gait/Station: Normal Psychiatric Treatment Plan - Problem List (1) Cocaine dependence Current Visit: No (2) Sedative dependence Current Visit: No (3) Cannabis dependence Current Visit: Yes (4) Opioid dependence on agonist therapy Current Visit: Yes (5) Nicotine dependence Current Visit: Yes (6) Bipolar II disorder Current Visit: Yes (7) MDD (major depressive disorder) Current Visit: Yes (8) Substance induced mood disorder Current Visit: Yes (9) Substance-induced sleep disorder Current Visit: Yes (10) Asthma Current Visit: Yes Initial treatment plan: Patient will be discharged tomorrow and referred to [facility] for outpatient treatment
[2018-03-03] MEDS: THIAMINE HCL 100 MG TABLET (FP) PO SCH (22:02)
[2018-03-03] MEDS: LIDOCAINE PATCH REMOVAL MC SCH (22:04)
[2018-03-04] MEDS: METHADONE HCL 40 MG DISPERSABLE TABLET PO SCH (06:17)
[2018-03-04 06:50] VITALS: BP 102/74; PULSE 64; TEMP 97.7
== END 2018-03-04 09:25 | disposition home or self-care (01) | DRG 772 ==
LOC: YASAS 12:25 → Y3W 18:01
PROVIDERS: ADMIT Psychiatry & Neurology Psychiatry; ATTEND Psychiatry & Neurology Psychiatry
PROC: HZ42ZZZ Group Counseling for Substance Abuse Treatment, Cognitive-Behavioral (ICD-10-PCS; principal; 2018-02-04)
DX: F11.20 Opioid dependence, uncomplicated (principal); F13.230 Sedative, hypnotic or anxiolytic dependence with withdrawal, uncomplicated; F14.20 Cocaine dependence, uncomplicated; F12.20 Cannabis dependence, uncomplicated; F17.210 Nicotine dependence, cigarettes, uncomplicated; F31.81 Bipolar II disorder; F33.9 Major depressive disorder, recurrent, unspecified; F19.24 Other psychoactive substance dependence with psychoactive substance-induced mood disorder; F19.282 Other psychoactive substance dependence with psychoactive substance-induced sleep disorder; J45.909 Unspecified asthma, uncomplicated; B18.2 Chronic viral hepatitis C; M25.579 Pain in unspecified ankle and joints of unspecified foot; M25.569 Pain in unspecified knee; Z91.5 Personal history of self-harm
CPT/HCPCS: 36415; 80053; 81003; 85027; 86593; 93005; 93010